=== PATIENT | female | born 1965 | race Caucasian/White ===

== ENCOUNTER → 2019-10-27 16:07 | Outpatient (BNVA) | payer OTHER, SELFPAY | PROVIDERS: PCP Family Medicine; Visit Provider Nurse Practitioner | DX: R05 Cough (principal); J06.9 Acute upper respiratory infection, unspecified | CPT/HCPCS: 87804 ==

== ENCOUNTER → 2020-09-30 10:13 | Outpatient (BNVA) | payer OTHER, SELFPAY | PROVIDERS: PCP Family Medicine; Visit Provider Nurse Practitioner Family | DX: J40 Bronchitis, not specified as acute or chronic (principal) | CPT/HCPCS: 71046 ==

== ENCOUNTER 2024-06-13 12:20 | Inpatient (IN) | payer OTHER, SELFPAY ==
[2024-06-13 12:25] VITALS: BP 146/96; PULSE 87; RESP 16; TEMP 36.9; O2SAT 95; BMI 35.7
--- NOTE | 2024-06-13 12:30 | ED.C_ITS ---
HPI - Psych 2 General: Chief Complaint: Psychiatric Symptoms Stated Complaint: SI Time Seen by Provider: 06/13/24 12:26 Source: patient Mode of arrival: ambulatory Limitations: no limitations History of Present Illness: 58-year-old female who states that she h as been under a lot of stress states everything is been going wrong she lost her job states she been having severe depression she states she had a couple shots this morning then took 3 Xanax stating she want to kill herself and she had no previous psych admissions recently. Patient is very tearful here and upset Associated symptoms: Reports depression and suicidal ideation Related Data Home Medications Medication Instructions Recorded Confirmed alprazolam 0.5 mg tablet See Rx Instructions .Route .COMPLEX 06/13/24 06/13/24 omeprazole 40 mg capsule,delayed 40 mg PO QAM PRN REFLUX 06/13/24 06/13/24 release ondansetron 4 mg disintegrating See Rx Instructions .Route .COMPLEX 06/13/24 06/13/24 tablet Allergies Allergy/AdvReac Type Severity Reaction Status Date / Time No Known Allergies Allergy Verified 10/27/19 16:02 Review of Systems 2 Const: Denies: fever(s), chills, body aches or change in appetite ENMT: Denies: throat pain or dental pain Card: Denies: chest pain Resp: Denies: dyspnea GI: Denies: abdominal pain, nausea, vomiting or diarrhea Musc: Denies: neck pain, back pain or extremity pain Skin/Breast: Denies: rash Neuro: Denies: headache(s) Psych: Reports: depression and suicidal ideation [facility] ED 2 PFSH: Social History Smoking and tobacco/nicotine status: never used tobacco/nicotine Physical Exam 2 Const: COMMON NORMALS: no acute distress, patient oriented x3 and healthy appearing HENMT: COMMON NORMALS: normocephalic and atraumatic HEAD & SCALP: n ormocephalic and atraumatic Eye: COMMON NORMALS: Equal, round and reactive pupils present and EOMs intact bilaterally PUPIL: Yes Equal, round and reactive pupils present Neck/C-Spine: COMMON NORMALS: full ROM and supple Chest: COMMONS NORMALS: normal inspection of the chest Resp: COMMON NORMALS: normal respiratory effort, No retractions, No use of accessory muscles and clear to auscultation bilaterally AUSCULTATION: clear to auscultation bilaterally Cardio: COMMON NORMALS: regular rate, regular rhythm and No murmurs present (Cardio) RATE: regular rate RHYTHM: regular rhythm GI: COMMON NORMALS: Normal to inspection, nondistended, normoactive bowel sounds present, Soft to palpation, non-tender and no masses PALPATION: Yes Soft to palpation Extremity: COMMON NORMALS: normal to inspection and full ROM Neuro: COMMON NORMALS: patient oriented x3, moves all extremities and no focal motor deficits Psych: COMMON NORMALS: mental status grossly normal, Normal thought process present and cooperative MOOD & AFFECT: Yes tearful THOUGHT PROCESS: Normal thought process present THOUGHT CONTENT: Yes Suicidality present Skin: COMMON NORMALS: no rashes or lesions noted and no wounds GENERAL SKIN EXAM: no rashes or lesions noted Course 2 Vital Signs: Vital signs: Vital Signs Temperature 98.4 F 06/13/24 12:25 Pulse Rate 87 06/13/24 12:25 Respiratory Rate 16 06/13/24 12:25 Blood Pressure 146/96 06/13/24 12:25 Pulse Oximetry 95 06/13/24 12:25 Oxygen Delivery Me thod Room Air 06/13/24 12:25 [facility] - Psych Medical Decision Making Patient presents here with suicidal ideation she did take Xanax attempt kill her so she only took 3-4 she has no signs of overdose here she is medically cleared I spoke to psychiatrist will admit to the psych welch. Medical Records I reviewed the patient's medical records. Lab Data I reviewed the patient's lab results. 06/13/24 12:50 06/13/24 12:50 Laboratory Results WBC 6.56 10^3/uL (3.29-11.43) 06/13/24 12:50 RBC 5.08 10^6/uL (3.85-5.65) 06/13/24 12:50 Hgb 17.10 g/dL (11.27-16.99) H 06/13/24 12:50 Hct 48.7 % (36-47) H 06/13/24 12:50 MCV 95.9 fl (85-98) 06/13/24 12:50 MCH 33.7 pg (27-33) H 06/13/24 12:50 MCHC 35.1 g/dL (30-55) 06/13/24 12:50 RDW 10.9 % (12.1-15.1) L 06/13/24 12:50 Plt Count 378 10^3/cmm (157-399) 06/13/24 12:50 MPV 8.3 fL (7.4-10.4) 06/13/24 12:50 Neut % (Auto) 48.2 % 06/13/24 12:50 Lymph % (Auto) 43.4 % 06/13/24 12:50 Laurens % (Auto) 3.7 % 06/13/24 12:50 Eos % (Auto) 3.0 % 06/13/24 12:50 Baso % (Auto) 1.4 % 06/13/24 12:50 Neut # (Auto) 3.16 10^3/uL (1.8-7.7) 06/13/24 12:50 Lymph # (Auto) 2.9 10^3/uL (0.8-4.8) 06/13/24 12:50 [place]rens # (Auto) 0.2 10^3/uL (0.2-0.9) 06/13/24 12:50 Eos # (Auto) 0.2 10^3/uL (0.0-0.8) 06/13/24 12:50 Baso # (Auto) 0.1 10^3/uL (0.0-0.1) 06/13/24 12:50 Nucleated RBC % (auto) 0 % 06/13/24 12:50 Nucleated RBCs # 0.0 /100WBC 06/13/24 12:50 Sodium 138 mmol/L (136-145) 06/13/24 12:50 Potassium 3.9 mmol/L (3.5-5.1) 06/13/24 12:50 Chloride 99 mmol/L (98-107) 06/13/24 12:50 Carbon Dioxide 27 mmol/L (22-29) 06/13/24 12:50 Anion Gap 15.9 (5-19) 06/13/24 12:50 BUN 15 mg/dL (6-20) 06/13/24 12:50 Creatinine 0.5 mg/dL (0.5-0.9) 06/13/24 12:50 GFR Calculation 127.2 mL/min (90-130) 06/13/24 12:50 Glucose 108 mg/dL (65-115) 06/13/24 12:50 Calculated Osmolality 287 mOsm/kg (285-295) 06/13/24 12:50 Calcium 9.4 mg/dL (8.5-10.5) 06/13/24 12:50 Total Bilirubin 0.3 mg/dL (0.15-1.2) 06/13/24 12:50 AST 47 U/L (0-32) H 06/13/24 12:50 ALT 59 U/L (0-33) H 06/13/24 12:50 Alkaline Phosphatase 82 U/L (35-105) 06/13/24 12:50 Total Protein 8.3 g/dL (6.6-8.7) 06/13/24 12:50 Albumin 5.1 g/dL (3.5-5.2) 06/13/24 12:50 Globulin 3.2 g/dL (1.3-4.6) 06/13/24 12:50 Salicylates < 0.3 mg/dL (3-10) L 06/13/24 12:50 Acetaminophen < 5.0 ug/mL (10-30) L 06/13/24 12:50 Ethyl Alcohol 224 mg/dL (0-10) H 06/13/24 12:50 No radiology studies performed this visit Discharge Plan Discharge Patient Disposition: Admitted As Inpatient Admit Provider: Dustin Ceron Clinical Impression: Suicidal ideation Condition: Stable Coding Level of Care Code ED Curb Setter Helper for Niraj Fu
[2024-06-13 13:01] LABS: Basophils # 0.1 10^3/uL (0.0-0.1); Basophils % 1.4 %; Eosinophils # 0.2 10^3/uL (0.0-0.8); Hematocrit 48.7 % (36-47); Lymphocytes # 2.9 10^3/uL (0.8-4.8); Lymphocytes % 43.4 %; Mean Corpuscular HGB Conc 35.1 g/dL (30-55); Mean Corpuscular Hemoglobin 33.7 pg (27-33); Mean Corpuscular Volume 95.9 fl (85-98); Mean Platelet Volume 8.3 fL (7.4-10.4); Monocytes # 0.2 10^3/uL (0.2-0.9); Monocytes % 3.7 %; Neutrophils # 3.16 10^3/uL (1.8-7.7); Neutrophils % 48.2 %; Nucleated Red Blood Cells % 0 %; Platelet Count 378 10^3/cmm (157-399); Red Blood Count 5.08 10^6/uL (3.85-5.65); Red Cell Distribution Width 10.9 % (12.1-15.1); White Blood Count 6.56 10^3/uL (3.29-11.43)
[2024-06-13 13:17] LABS: Acetaminophen < 5.0 ug/mL (10-30); Alanine Aminotransferase 59 U/L (0-33); Albumin Level 5.1 g/dL (3.5-5.2); Alcohol Level 224 mg/dL (0-10); Alkaline Phosphatase 82 U/L (35-105); Anion Gap 15.9 (5-19); Aspartate Amino Transferase 47 U/L (0-32); Blood Urea Nitrogen 15 mg/dL (6-20); Calcium 9.4 mg/dL (8.5-10.5); Carbon Dioxide 27 mmol/L (22-29); Chloride 99 mmol/L (98-107); Creatinine Clr Calc Pharmacy 143.4689; Globulin 3.2 g/dL (1.3-4.6); Glomerular Filtration Rate 127.2 mL/min (90-130); Glucose 108 mg/dL (65-115); Osmolality Calculated 287 mOsm/kg (285-295); Potassium 3.9 mmol/L (3.5-5.1); Salicylate < 0.3 mg/dL (3-10); Sodium 138 mmol/L (136-145); Total Bilirubin 0.3 mg/dL (0.15-1.2); Total Protein 8.3 g/dL (6.6-8.7)
--- NOTE | 2024-06-13 14:27 | PC.NURSE ---
Attempted to read 96 hour hold rights to patient. Patient appears to be sedated at this time. ETOH is on board. She does have even and normal respirations at this time. Copy of rights left at the bedside.
--- NOTE | 2024-06-13 14:29 | PC.PHAR ---
i SPOKE TO PATIENT'S SISTER AND THOSE WERE THE ONLY MEDICATIONS SHE KNEW SHE HAD
[2024-06-13 14:47] VITALS: BP 138/98; PULSE 89; RESP 18; TEMP 36.9; O2SAT 96
[2024-06-13 14:52] VITALS: PULSE 91; O2SAT 95
[2024-06-13] MEDS: OLANZapine 5 mg ODT PO (18:19)
[2024-06-13 20:00] VITALS: BP 126/71; PULSE 118; RESP 18; O2SAT 93
[2024-06-13] MEDS: LORazepam 2 mg Tablet PO (21:04)
--- NOTE | 2024-06-13 21:05 | PC.NURSE ---
Pt CIWA scale was 12, pt qualified for a 2mg Ativan. pt care is ongoing.
[2024-06-14] VITALS (10 sets, daily range): BP systolic 107–189; BP diastolic 71–118; PULSE 74–108; RESP 15–20; TEMP 36.6–37; O2SAT 94–97
[2024-06-14] MEDS: acetaminophen 325 mg Tablet 650 MG PO (07:46)
[2024-06-14] MEDS: LORazepam 2 mg Tablet PO (07:51)
--- NOTE | 2024-06-14 08:03 | PC.NURSE ---
Patient denies avh and si/hi. She scored a 17 on her CIWA this morning and this RN administered ativan 2mg po per protocol. Patient tearful and anxious this morning. Patient is unsure of the date and says she is very confused this morning. Her blood pressure was high this morning and will be rechecked this morning after ativan was given.
--- NOTE | 2024-06-14 09:52 | PC.NURSE ---
Patient's high blood pressure readings were reported to dr ceron who requested this RN call nurse practitioner, Oliva Ortega's, office to find out what blood pressure medication the patient was on previously. Nurse, Jackie, relayed that the patient had not been prescribed medication for high blood pressure since 05/2020 and it was metoprolol er [address] daily[address] Ceron notified. No new orders at this time.
[2024-06-14] MEDS: multivitamin therapeutic Tablet 1 TAB PO (10:21)
[2024-06-14] MEDS: folic acid 1 mg Tablet PO (10:21)
[2024-06-14] MEDS: thiamine 100 mg Tablet PO (10:21)
[2024-06-14] MEDS: metoprolol succinate ER (24 HR) 25 mg Tablet PO (11:10)
[2024-06-14] MEDS: cloNIDine 0.1 mg Tablet PO (11:10)
--- NOTE | 2024-06-14 12:45 | W.PM.NPUH&PS ---
Providers/Chief Complaint Admitting Physician: Dustin Ceron MD Primary Care Provider: Sonia Oconnor MD Chief Complaint: SI HPI NPU History of Present Illness Aminta Mirza is a 58 year old female who presented to the emergency room having stated that she was depressed and reporting that she had been drinking and had taken 3 Xanax with the intent of wanting to kill herself. The patient was admitted with a blood alcohol level of 224. She was admitted to the neuropsychiatric unit for further diagnosis and treatment. The patient reports having been depressed for greater than 1 year. She reports that initial stressors leading to her depression included her son having a stroke approximately 1 year ago and then later in August being informed that a former close male friend was no longer allowed to remain friends with the patient as he had a new relationship. Patient had reported a past history of previous depressive episodes. She reported no history of manic episodes. She denied any history of psychotic episodes. She reports that she has been under extreme financial stress and states that she has struggled with paying the bills. She had reported that she has had difficulty with concentration and reports having difficulties falling asleep. She reports having an increase in anxiety. She reports having depression nearly every day and reports that she has had struggles with concentration. She reports that she is crying more frequently. She had endorsed some increased feelings of hopelessness and worthlessness. She reports that she has been consuming alcohol more frequently over the past year but reports no history of alcohol-related withdrawal symptoms. She denies any illicit drug use but reports occasional marijuana use as well. The patient had reported that she had been working at her job for 19 years but was fired in 2022 and reports that she has been struggling with maintaining her jobs. She reports having chronic problems with managing anxiety. She endorses that she has been isolating herself more frequently. She had reported that she had recently stated that she had been having thoughts of suicide but did not had a plan to kill herself until the day she had taken the extra Xanax. She reports no diurnal variation in her depression. She does report not feeling rested when awakening. Inpatient psychiatric history: Patient had reported 2 previous hospitalizations 1 at the age of 13 and 1 at the age of 17 after she had had a suicide attempt and was hospitalized at [facility] in [facility]. She reports having been placed on antidepressants at that time. Outpatient psychiatric history: The patient had reported previous psychotherapy as well as having been previously on medications in the distant past including Elavil when she was an adolescent. Substance abuse history: The patient reports no history of alcohol or illicit drug use requiring inpatient or outpatient substance abuse treatment although she had reported significant history of alcohol use over the last year. She denied any history of alcohol-related withdrawal symptoms. Medical history: History of hypertension, history of hypercholesterolemia, history of GERD Surgical history: Left wrist surgery, right ankle surgery, hysterectomy, tonsillectomy, adenoidectomy Current medications: Omeprazole 40 mg daily, alprazolam 0.5 mg as needed for anxiety ,ondansetron 4 mg disintegrating tablet as needed Legal history: none Hx: none Family psychiatric history: Father had a history of alcoholism. Depression and anxiety and siblings. Social history: Patient has no history of any developmental delays. She was born and raised in [facility] by her biological parents who split up when the patient was 11 years old. She reports having 2 older brothers and a sister. She denied any history of sexual physical or emotional abuse during her childhood. She had been raised by her mother after her parents . The patient had reported having worked after high school and states that she had been previously twice and has 2 children that are adult age. She had reported that both of her ex-'s 2 weeks from 1 another. She reports that she had worked a steady job for 19 years until she lost lost it in March 2024. 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 She reports having social support from her son who lives in the house with her. Meds NPU Home Medications Medication Instructions Recorded Confirmed Last Taken Type alprazolam 0.5 mg tablet See Rx Instructions .Route .COMPLEX 06/13/24 06/13/24 Unknown History omeprazole 40 mg capsule,delayed 40 mg PO QAM PRN REFLUX 06/13/24 06/13/24 Unknown History release ondansetron 4 mg disintegrating See Rx Instructions .Route .COMPLEX 06/13/24 06/13/24 Unknown History tablet Allergies Allergy/AdvReac Type Severity Reaction Status Date / Time No Known Allergies Allergy Verified 10/27/19 16:02 PFSH NPU PFSH: Social History Smoking and tobacco/nicotine status: never used tobacco/nicotine Mental Status Exam MSE Comments: Patient is a moderately overweight white female who was pleasant and cooperative on interview. Her gait was within normal limits. Her hygiene was fair. There was no evidence of any abnormal involuntary motor movements tics or tremors appreciated. Her speech was normal in regards to rate rhythm and prosody. She was extremely tearful on interview with significant psychomotor retardation evident. Her mood was described as depressed. Her affect was restricted in range and mood congruent. Her thought process was linear logical goal-directed. Her thought content showed evidence of suicidal ideation acknowledging her plan to overdose on her pills. She denied any homicidal ideation. She did not appear to be responding to internal stimuli. There was no clear evidence of delusional thinking. She was alert and oriented to person place time and situation. Her recent and remote memory were intact. Her insight was poor. Her judgment was poor. Her impulse control appeared limited at this time. Vitals/I&O/Wt Last Vital Signs Temp 98 F 06/14/24 11:59 Pulse 96 06/14/24 11:59 Resp 18 06/14/24 11:59 BP 142/103 06/14/24 11:59 Pulse Ox 95 06/14/24 11:59 O2 Del Method Room Air 06/14/24 04:00 Weight last 48 hrs Weight 97.522 kg Data NPU 06/13/24 12:50 06/13/24 12:50 A&P Assessment and plan (1) RBEA (generalized anxiety disorder): (2) MDD (major depressive disorder), recurrent severe, without psychosis: (3) Suicidal ideation: Plan 58-year-old female complaining of severe depression with a past history of depressive episodes admitted with overdose on Xanax combined with alcohol with more recent history of alcohol abuse noted with family history as well. #1.? Engage patient in individual milieu and group therapy. #2?? Recommend sober living treatment at the highest level of care to which the patient is willing to commit #3??? CIWA for alcohol withdrawal #4?? TO-15 minute checks? #5?? Start prozac 20mg daily for depression. Involuntary Hold Information 96 Hour Hold: 96 Hour Involuntary Admission: Yes 96 Hour Hold Ending Date: 06/19/24 96 Hour Hold Ending Time: 12:56 Attestations NPU Medical Necessity Statement*: Inpatient hospitalization is medically necessary and deemed to ?be ?the clinically appropriate intervention ?at this time.? We will monitor/initiate medications and make changes as indicated.? The patient will be in the hospital for over 2 midnights.? The patient?s likely length of stay 4-6 days. Coding Level of Care Code Acute Code for Chg Fwd Diagnoses REBA (generalized anxiety disorder) F41.1 MDD (major depressive disorder), recurrent severe, without psychosis F33.2 Suicidal ideation R45.851
[2024-06-14] MEDS: fluoxetine 20 mg Capsule PO (14:07)
[2024-06-14 14:54] LABS: Amphetamines Screen Urine Negative (Negative); Barbiturates Screen Urine Negative (Negative); Benzodiazepines Screen Urine Positive (Negative); Cocaine Screen Urine Negative (Negative); Opiate Screen Urine Negative (Negative); PCP Screen Urine Negative (Negative); THC Screen Urine Positive (Negative)
[2024-06-14] MEDS: loperamide 2 mg Capsule PO (20:16)
[2024-06-15] VITALS (7 sets, daily range): BP systolic 122–179; BP diastolic 71–108; PULSE 80–100; RESP 16–18; TEMP 36.5–37.5; O2SAT 94–96
[2024-06-15] MEDS: multivitamin therapeutic Tablet 1 TAB PO (09:30)
[2024-06-15] MEDS: metoprolol succinate ER (24 HR) 25 mg Tablet PO (09:30)
[2024-06-15] MEDS: thiamine 100 mg Tablet PO (09:30)
[2024-06-15] MEDS: fluoxetine 20 mg Capsule PO (09:30)
[2024-06-15] MEDS: folic acid 1 mg Tablet PO (09:30)
[2024-06-15] MEDS: LORazepam 2 mg Tablet PO ×2 (16:11→17:46)
[2024-06-15] MEDS: acetaminophen 325 mg Tablet 650 MG PO (16:11)
--- NOTE | 2024-06-15 16:19 | PC.NURSE ---
Patient reading in her room. FLOOR SERVICE WORKER SPRING reported her blood pressure to be 169/108. Patient does report a headache and anxiety due to her son being at home without her to take care of his medications. This RN administered ativan 2mg po per protocol and vitals will be retaken. Tylenol was also given.
--- NOTE | 2024-06-15 17:00 | P.NPUPN_ITS ---
Subjective NPU 2 Subjective: Patient presented today reporting that she is doing okay now and that she needs to get back to work. She was very focused on not being kept here the entire time of her hold and was focused on getting back to work because she reports she had a time where she was not working and now her finances are problematic. She also had concerns that she could be let go. She reported that her drinking is not as significant as it is being identified as. We agreed that this principal technical writer would look into the 96-hour hold affidavit and get some collateral information to identify when discharge would be reasonable. She denied any side effects to the medication. We had a long discussion about her elevated blood pressure and her lack of understanding of how that is connected to alcohol use and withdrawal. Mental Status Exam 2 MSE Comments: This is an obese white female in hospital scrubs with limited grooming but adequate eye contact.. There was no evidence of any abnormal involuntary motor movements tics or tremors appreciated. Her speech was normal in regards to rate rhythm and prosody. Mood was described as feeling a little better, affect was restricted. Her thought process was linear, logical goal-directed. She denies current suicidal or homicidal ideation. She did not appear to be responding to internal stimuli. There was no clear evidence of delusional thinking. She was alert and oriented to person place time and situation. Her recent and remote memory were intact. Her insight was poor. Her judgment was poor. Her impulse control appeared limited at this time. Vitals/I&O/Wt Last Vital Signs Temp 97.7 F 06/15/24 16:00 Pulse 87 06/15/24 16:00 Resp 16 06/15/24 16:00 BP 169/108 06/15/24 16:00 Pulse Ox 95 06/15/24 16:00 O2 Del Method Room Air 06/15/24 16:00 Data NPU 06/13/24 12:50 06/13/24 12:50 A&P Assessment and plan (1) REBA (generalized anxiety disorder): (2) MDD (major depressive disorder), recurrent severe, without psychosis: (3) Suicidal ideation: Plan 58-year-old female complaining of severe depression with a past history of depressive episodes admitted with overdose on Xanax combined with alcohol with more recent history of alcohol abuse noted with family history as well. 1.? Engage patient in individual milieu and group therapy. 2.??Recommend sober living treatment at the highest level of care to which the patient is willing to commit 3.??CIWA for alcohol withdrawal 4.? TO-15 minute checks? 5.??Start prozac 20mg daily for depression. Involuntary Hold Information 2 96 Hour Hold: 96 Hour Involuntary Admission: Yes 96 Hour Hold Ending Date: 06/19/24 96 Hour Hold Ending Time: 12:56 Attestations NPU 2 Medical Necessity Statement*: Inpatient hospitalization is medically necessary and deemed to ?be ?the clinically appropriate intervention ?at this time.? We will monitor/initiate medications and make changes as indicated.?The patient?s likely length of stay 2-4 days. Coding Level of Care Code Acute Code for Chg Fwd Diagnoses REBA (generalized anxiety disorder) F41.1 MDD (major depressive disorder), recurrent severe, without psychosis F33.2 Suicidal ideation R45.85
--- NOTE | 2024-06-15 17:49 | PC.NURSE ---
Patient's blood pressure retaken after a dose of ativan was given. Blood pressure was recorded at 179/104. This RN reported this to Dr. Cook who requested this RN give the patient another dose of 2mg ativan po.
[2024-06-16] VITALS: BP 121/80; PULSE 83; RESP 17; TEMP 36.6; O2SAT 94
[2024-06-16 04:00] VITALS: BP 124/77; PULSE 74; RESP 16; TEMP 36.3; O2SAT 95
--- NOTE | 2024-06-16 07:11 | P.NPUPN_ITS ---
Subjective NPU 2 Subjective: Patient presented today reporting that she was thankful for all that we had done and that she is feeling optimistic about moving forward. She denied any side effects to the medication. We discussed the likelihood of discharge tomorrow. Mental Status Exam 2 MSE Comments: This is an obese white female in hospital scrubs with limited grooming but adequate eye contact.. There was no evidence of any abnormal involuntary motor movements tics or tremors appreciated. Her speech was normal in regards to rate rhythm and prosody. Mood was described as feeling better, affect w less as restricted. Her thought process was linear, logical goal-directed. She denies current suicidal or homicidal ideation. She did not appear to be responding to internal stimuli. There was no clear evidence of delusional thinking. She was alert and oriented to person place time and situation. Her recent and remote memory were intact. Her insight and judgment are improving. Vitals/I&O/Wt Last Vital Signs Temp 97.4 F L 06/16/24 04:00 Pulse 74 06/16/24 04:00 Resp 16 06/16/24 04:00 BP 124/77 06/16/24 04:00 Pulse Ox 95 06/16/24 04:00 O2 Del Method Room Air 06/15/24 17:27 Data NPU 06/13/24 12:50 06/13/24 12:50 A&P Assessment and plan (1) REBA (generalized anxiety disorder): (2) MDD (major depressive disorder), recurrent severe, without psychosis: (3) Suicidal ideation: Plan 58-year-old female complaining of severe depression with a past history of depressive episodes admitted with overdose on Xanax combined with alcohol with more recent history of alcohol abuse noted with family history as well. 1.? Engage patient in individual milieu and group therapy. 2.??Recommend sober living treatment at the highest level of care to which the patient is willing to commit 3.??CIWA for alcohol withdrawal 4.? TO-15 minute checks? 5.??Started prozac 20mg daily for depression. Involuntary Hold Information 2 96 Hour Hold: 96 Hour Involuntary Admission: Yes 96 Hour Hold Ending Date: 06/19/24 96 Hour Hold Ending Time: 12:56 Attestations NPU 2 Medical Necessity Statement*: Inpatient hospitalization is medically necessary and deemed to ?be ?the clinically appropriate intervention ?at this time.? We will monitor/initiate medications and make changes as indicated.?The patient?s likely length of stay 1-3 days. Coding Level of Care Code Acute Code for Chg Fwd Diagnoses REBA (generalized anxiety disorder) F41.1 MDD (major depressive disorder), recurrent severe, without psychosis F33.2 Suicidal ideation R45.851
[2024-06-16 07:18] VITALS: BP 155/106; PULSE 97; RESP 16; TEMP 37.3; O2SAT 95
[2024-06-16] MEDS: multivitamin therapeutic Tablet 1 TAB PO (09:46)
[2024-06-16] MEDS: metoprolol succinate ER (24 HR) 25 mg Tablet PO (09:46)
[2024-06-16] MEDS: thiamine 100 mg Tablet PO (09:46)
[2024-06-16] MEDS: fluoxetine 20 mg Capsule PO (09:46)
[2024-06-16] MEDS: folic acid 1 mg Tablet PO (09:46)
[2024-06-16 10:51] VITALS: BP 145/87; PULSE 81; RESP 16; TEMP 37; O2SAT 95
[2024-06-16 16:00] VITALS: BP 126/86; PULSE 78; RESP 16; TEMP 36.8; O2SAT 100
[2024-06-16 20:00] VITALS: BP 156/96; PULSE 84; RESP 18; TEMP 36.7; O2SAT 94
[2024-06-16] MEDS: trazodone 50 mg Tablet PO ×2 (20:05→22:32)
[2024-06-17] VITALS: BP 134/82; PULSE 80; RESP 16; TEMP 36.8; O2SAT 97
[2024-06-17 04:00] VITALS: BP 120/78; PULSE 79; RESP 16; TEMP 36.3; O2SAT 94
[2024-06-17 07:28] VITALS: BP 123/77; PULSE 83; RESP 16; TEMP 36.9; O2SAT 96
--- NOTE | 2024-06-17 09:07 | PC.NURSE ---
Reading in her room. Denies avh and si/hi. Patient was tearful during assessment and did endorse increased depression. Patient did express concern for her finances when she leaves and stated, I know it sounds stupid, but I'm scared. Cooperative with assessment.
[2024-06-17] MEDS: metoprolol succinate ER (24 HR) 25 mg Tablet PO (09:22)
[2024-06-17] MEDS: thiamine 100 mg Tablet PO (09:22)
[2024-06-17] MEDS: folic acid 1 mg Tablet PO (09:22)
[2024-06-17] MEDS: multivitamin therapeutic Tablet 1 TAB PO (09:22)
[2024-06-17] MEDS: fluoxetine 20 mg Capsule PO (09:22)
[2024-06-17 11:09] VITALS: BP 144/88; PULSE 86; RESP 16; TEMP 36.8; O2SAT 94
[2024-06-17 14:17] VITALS: BP 135/88; PULSE 90; RESP 16; TEMP 37.2; O2SAT 94
[2024-06-17 19:52] VITALS: BP 136/86; PULSE 80; RESP 18; TEMP 37.1; O2SAT 94
[2024-06-17] MEDS: trazodone 50 mg Tablet PO ×2 (20:39→23:31)
[2024-06-18 06:00] VITALS: BP 124/74; PULSE 77; RESP 16; TEMP 36.9; O2SAT 93
[2024-06-18] MEDS: folic acid 1 mg Tablet PO (08:44)
[2024-06-18] MEDS: guaiFENesin 600 mg Tablet PO (08:44)
[2024-06-18] MEDS: thiamine 100 mg Tablet PO (08:45)
[2024-06-18] MEDS: fluoxetine 20 mg Capsule PO (08:45)
[2024-06-18] MEDS: multivitamin therapeutic Tablet 1 TAB PO (08:45)
[2024-06-18] MEDS: metoprolol succinate ER (24 HR) 25 mg Tablet PO (08:45)
--- NOTE | 2024-06-18 10:46 | PC.NURSE ---
PT CURRENTLY DENIES SI/HI/AH/VH. PT CURRENTLY DENIES DEPRESSION. PT ENDORSES ANXIETY. PT DID NOT RATE THE ANXIETY. PT SPOKE WITH THUS NURSE ABOUT A VARIETY OF HOME STRESSORS. PT REQUESTED INFORMATION ON COMMUNITY RESOURCES AND THE [facility]ISIS [facility]. THIS NURSE PROVIDED INFORMATIONAL PACKETS ON THIS INFORMATION AND A PHONE NUMBER AND ADDRESS FOR THE [facility]. PT APPEARED GRATEFUL FOR THIS INFORMATION. PT CURRENTLY HAS A POSITIVE OUTLOOK FOR RECEIVING FOLLOW UP APPOINTMENTS WITH THERAPY. PT WAS COOPERATIVE WITH ASSESSMENT. PT CURRENT NEEDS ARE MET AT THIS TIME.
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
[2024-06-18 10:57] VITALS: BP 124/74; PULSE 77; RESP 16; TEMP 36.9; O2SAT 93
[2024-06-18 10:58] VITALS: BP 124/74; PULSE 77; RESP 16; TEMP 36.9; O2SAT 93
== END 2024-06-18 14:14 | disposition home or self-care (01) | DRG 885 ==
LOC: ER 13:43 → NP 13:49
PROVIDERS: Admitting Provider Psychiatry & Neurology Psychiatry; Emergency Provider Emergency Medicine; PCP Family Medicine; Visit Provider Psychiatry & Neurology Psychiatry
DX: F33.2 Major depressive disorder, recurrent severe without psychotic features (principal); R45.851 Suicidal ideations; F41.1 Generalized anxiety disorder; Y90.7 Blood alcohol level of 200-239 mg/100 ml; I10 Essential (primary) hypertension; K21.9 Gastro-esophageal reflux disease without esophagitis; E78.00 Pure hypercholesterolemia, unspecified; E66.9 Obesity, unspecified; Z68.28 Body mass index [BMI] 28.0-28.9, adult; Z79.899 Other long term (current) drug therapy; Z91.51 Personal history of suicidal behavior; Z90.710 Acquired absence of both cervix and uterus
CPT/HCPCS: 36415; 80053; 80306; 80307; 85025; 97150; 97165; 99285